=== PATIENT | female | born 1970 | race Caucasian/White ===

== ENCOUNTER 2018-02-28 10:54 | Emergency (ER) | payer OTHER ==
[~2018-02-28] VITALS: Ht 160 cm; Wt 113.4 kg
[2018-02-28 10:58] VITALS: BP 140/97
--- NOTE | 2018-02-28 11:58 | ED ANIMAL BITE/WOUND CHECK ---
History of Present Illness General Chief Complaint: Animal/Insect Bite Stated Complaint: CAT BITE Source: patient Exam Limitations: no limitations Vital Signs & Intake/Output Vital Signs & Intake/Output Vital Signs Date Time Temp Pulse Resp B/P B/P Pulse O2 O2 Flow FiO2 Mean Ox Delivery Rate 02/28 1058 98.6 89 15 140/97 97 Room Air Room Air Allergies Coded Allergies: No Known Allergies (02/28/18) Reconcile Medications Alprazolam 0.25 MG TABLET 1 TAB PO DAILY NEEDED ANXIETY (Reported) Amoxicillin/Potassium Clav (Augmentin 875-125 Tablet) 875 MG-125 MG TABLET 1 TAB PO BID CAT BITE Fluoxetine HCl 20 MG CAPSULE 1 CAP PO DAILY ANXIETY (Reported) Irbesartan 150 MG TABLET 1 TAB PO DAILY HTN (Reported) Triage Note: PT TO ED FOR C/C OF CAT BITE TO R HAND. SEEN AT URGENT CARE THIS MORNING AND TOLD TO COME TO ED. UNSURE LAST TETANUS. CAT UP TO DATE ON VACCINES. Triage Nurses Notes Reviewed? yes Onset: Abrupt Duration: day(s): (1), constant, continues in ED, getting worse Timing: single episode today Injury Environment: home Is Injury an Animal Bite? Yes Animal Type: cat, family pet Context of Animal Attack: provoked attack Appearance of Animal: appeared well Animal Immunization Status: up to date Observation/Capture: animal known/obs x10 days Severity of Attack: bitten Severity: moderate, severe Severity Numbers: 8 No Modifying Factors: none LMP (ages 10-50): unknown : No Patient currently breastfeeds: No HPI: 47-year-old female past medical history hypertension presents for evaluation of a cat bite to her right hand. Patient states that her cat got out last night so she went after it and picked it up and when she picked up and bit her in the hand. She states that she went to an urgent care today for the Items referred here for further evaluation. The cat is the family pet it is up-to-date on all vaccines. He has been behaving normally. Patient is unsure of her last tetanus. She reports pain and swelling to the right hand. She feels like there is spreading redness going up the arm. No fever she is not a diabetic no discharge. No numbness or tingling no wrist pain. Past History Travel History Traveled to [place] past 21 day No Medical History Any Pertinent Medical History? see below for history Cardiovascular: hypertension BUSINESS EXCELLENCE MANAGER/Reproductive: PMDD Surgical History Surgical History: non-contributory Psychosocial History What is your primary language Niuean Tobacco Use: Never used ETOH Use: occasional use Illicit Drug Use: denies illicit drug use Family History Hx Contributory? No Review of Systems Review of Systems Constitutional: Reports: no symptoms. EENTM: Reports: no symptoms. Respiratory: Reports: no symptoms. Cardiovascular: Reports: no symptoms. GI: Reports: no symptoms. Genitourinary: Reports: no symptoms. Musculoskeletal: Reports: no symptoms. Skin: Reports: see HPI, erythema. Neurological/Psychological: Reports: no symptoms. Hematologic/Endocrine: Reports: no symptoms. Immunologic/Allergic: Reports: no symptoms. All Other Systems: Reviewed and Negative Physical Exam Physical Exam General Appearance: well developed/nourished, no apparent distress, alert, awake Head: atraumatic, normal appearance Eyes: Bilateral: normal appearance, EOMI. Ears, Nose, Throat: hearing grossly normal Neck: normal inspection, supple, full range of motion Respiratory: normal breath sounds, chest non-tender, no respiratory distress, lungs clear Cardiovascular: regular rate/rhythm, normal peripheral pulses Peripheral Pulses: 2+ radial (R), 2+ radial (L) Back: normal inspection, normal range of motion Extremities: normal range of motion, there is diffuse swelling of the right hand with multiple puncture wounds. There is some surrounding erythema over the dorsum of the hand. There does appear to be FAINT lymphatic streaking going up to the wrist and distal forearm. No focal fluctuant areas no purulent discharge Neurologic/Psych: no motor/sensory deficits, awake, alert, oriented x 3, normal gait Skin: intact, normal color, warm/dry Lymphatic: no axillary adenopathy Progress Differential Diagnosis: abscess, cellulitis, joint infection, tenosysnovitis Plan of Care: Current Medications Sig/Nora Start time Last Medication Dose Stop Time Status Admin Ampicillin Sodium/ 3,000 MG ONCE ONE 02/28 1215 AC 02/28 Sulbactam Sodium 02/28 1244 1220 (Unasyn) Sodium Chloride 100 ML (Normal Saline 0.9%) Patient seen and evaluated. She has a Bite to the right hand with some SWELLING AND ERYTHEMA. There is faint lymphatic streaking no signs of abscess. Patient is not a diabetic. She is afebrile. Patient is medicated here with a dose of IV Unasyn. Tetanus was updated. She was discharged on Augmentin. Discussed with patient of the importance of close follow-up and the severity of Infections. Advised her to return in 2 days for wound check. Return sooner with any concerns. Discussed return precautions patient agrees Departure Departure Disposition: HOME OR SELF CARE Condition: Stable Clinical Impression Primary Impression: Cat bite involving extremity Referrals: Viki RODRIGUEZ,Bridget Richter (PCP/Family) Additional Instructions: Take antibiotics as directed for the full course. Tylenol and ibuprofen as needed for pain. It is very important to monitor symptoms. If you notice spreading redness worsening swelling worsening pain or any other concerns return immediately for IV antibiotics. YOU should have a wound check in 2 days. RETurn sooner with any concerns. Departure Forms: Customer Survey General Discharge Information Prescriptions: Current Visit Scripts Amoxicillin/Potassium Clav (Augmentin 875-125 Tablet) 1 TAB PO BID #20 TAB
[2018-02-28] MEDS ORDERED: IRBESARTAN150 M1 PO (12:03)
[2018-02-28] MEDS ORDERED: FLUOXETINE HCL20 M2 PO (12:03)
[2018-02-28] MEDS ORDERED: ALPRAZOLAM0.25 M1 PO (12:04)
[2018-02-28] MEDS ORDERED: AUGMENTIN 875-1 EACH PO (12:28)
== END 2018-02-28 12:32 ==
LOC: ERH 10:54
DX: S61.451A Open bite of right hand, initial encounter (principal); W55.01XA Bitten by cat, initial encounter; Y93.9 Activity, unspecified; Y92.9 Unspecified place or not applicable
CPT/HCPCS: 90471; 90714; 96374